=== PATIENT | female | born 1980 | race Caucasian/White ===

== ENCOUNTER 2020-04-17 11:25 | Emergency (ER) | payer OTHER, SELFPAY ==
--- NOTE | ~2020-04-17 | XR_ITS ---
XR knee LT min 4V 04/17/2020 11:48 INDICATION: Left lateral knee pain PROCEDURE: 4 views left knee COMPARISON: No prior studies for comparison. FINDINGS: Fracture, dislocation or subluxation is not identified. The soft tissues appear within norm al limits. No foreign bodies are identified. IMPRESSION: 1: NO ACUTE BONE OR JOINT ABNORMALITY IDENTIFIED. Reviewed, dictated and finalized at location A.
[2020-04-17 11:37] VITALS: BP 109/64; PULSE 90; RESP 16; TEMP 36.6; O2SAT 99
--- NOTE | 2020-04-17 11:59 | ED.LOWEXIN ---
HPI - Extremity Injury (Lower) General Chief Complaint: Extremity Injury, Lower Stated Complaint: fell left knee pain Time Seen by Provider: 04/17/20 11:59 Source: patient Mode of arrival: ambulatory Limitations: no limitations History of Present Illness HPI Narrative: Sonia Dickson is a 40 yo female who fell off a ladder last night while painting. Fell off third step with ladder, L posterior leg hurts, bruise to lateral thigh. Rates pain 2/10; raises to 8/10 with walking Related Data Home Medications Medication Instructions Recorded Confirmed dextroamphetamine-amphetamine 30 mg PO DAILY 04/17/20 04/17/20 [Adderall XR] lisinopril 10 mg PO DAILY 04/17/20 04/17/20 Allergies Allergy/AdvReac Type Severity Reaction Status Date / Time Penicillins Allergy Unknown HIVES Verified 04/17/20 11:39 Review of Systems Review of Systems: Narrative: CONSTITUTIONAL: Denies fever, chills, sweats. EYES: Denies visual changes, redness, discharge. ENT: Denies rhinorrhea, congestion, sore throat, otalgia. CARDIOVASCULAR: Denies chest pain, palpitations, edema. RESPIRATORY: Denies dyspnea, wheezing, cough GASTROINTESTINAL: Denies abdominal pain, nausea, vomiting, diarrhea. GENITOURINARY: Denies dysuria, hematuria, abnormal discharge SKIN: Denies rash or itching. NEUROLOGIC: Denies numbness, or focal weakness. PSYCHIATRIC: Denies anxiety or depression. L posterior knee pain with bruise to lateral distal femur PMFSH Past Medical History Medical History ADD (attention deficit disorder) HTN (hypertension) Family History Family History Other Hypertension Social History Social History Smoking status: Current every day smoker Tobacco type: e-cigarettes/vaping Alcohol intake: current Gender identity (if verbalized by the patient): Female Exam Narrative: Exam Narrative: GENERAL: This is a well-nourished, well-developed patient, in moderate distress. HEAD: normocephalic, atraumatic. EYES:Sclera clear/white. Vision is grossly intact. EARS: External ears normal, . Hearing grossly intact. NOSE: External nose normal without nasal discharge, nares without redness, no rhinorrhea. THROAT: Mucous membranes moist,nx NECK: Neck supple, CARDIOVASCULAR: Regular rate and rhythm without murmurs, gallops, or rubs. RESPIRATORY: Clear to auscultation. Breath sounds equal bilaterally. No wheezes, rales, or rhonchi. GASTROINTESTINAL: Abdomen soft, SKIN: warm, intact with no suspicious lesions or rash, good texture and turgor. NEURO: awake, alert, and oriented to person, place and time. There were no obvious focal neurologic abnormalities. Steady gait EXTREMITIES: Normal range of motion on R- L knee pain - unable to fully fex or extend, pain on posterior lateral part of knee, tender at IT band insertion notch BACK: Nontender without deformity Course Course Emergency Course: Here with left knee pain after fall from ladder last night X-ray negative for fracture -Clinically appears to have possible posterior ligament tear with IT band tightness. Ice the knee immobilizer. Started on pain medication, patient given directions to ice area and try to move it to level of pain tolerance; if not improving in 2 days to see orthopedics Vital Signs Vital signs: Vital Signs Temperature 97.8 F 04/17/20 11:37 Pulse Rate 90 04/17/20 11:37 Respiratory Rate 16 04/17/20 11:37 Blood Pressure 109/64 04/17/20 11:37 Pulse Oximetry 99 04/17/20 11:37 Temperature 97.8 F 04/17/20 11:37 Pulse Rate 90 04/17/20 11:37 Respiratory Rate 16 04/17/20 11:37 Blood Pressure 109/64 04/17/20 11:37 Pulse Oximetry 99 04/17/20 11:37 MDM - Extremity Injury (Lower) Differential Diagnosis Differential diagnosis: Likely acute internal derangement of knee and other Discharge
== END 2020-04-17 12:22 | disposition home or self-care (01) ==
PROVIDERS: Emergency Provider Nurse Practitioner; PCP Internal Medicine
DX: S89.92XA Unspecified injury of left lower leg, initial encounter (principal); W11.XXXA Fall on and from ladder, initial encounter; F98.8 Other specified behavioral and emotional disorders with onset usually occurring in childhood and adolescence; I10 Essential (primary) hypertension; F17.200 Nicotine dependence, unspecified, uncomplicated
CPT/HCPCS: 73564; 99213; G0463; L1830

== ENCOUNTER 2020-06-07 15:38 | Outpatient (CLI) | payer OTHER, SELFPAY ==
--- NOTE | ~2020-06-07 | MR_ITS ---
EXAMINATION: MR wrist LT wo con DATE: 06/07/2020 17:01 INDICATION: Acute onset left wrist pain post fall TECHNIQUE: Magnetic resonance imaging (MRI) of the left wrist was performed without intravenous contr ast. Sequences performed include axial PD-weighted FSE and PD-weighted FS FSE, coronal PD-weighted FS FSE and T1-weighted SE, and sagittal PD-weighted FS FSE and PD-weighted FSE. COMPARISON: None FINDINGS: Intrinsic ligaments: The lunotriquetral ligament is normal. Widening of the scapholunate interval with fluid-filled comple te tear involving the dorsal and central membranous components of the scapholunate ligament. Thickene d disorganized appearing volar component of the scapholunate ligament consistent with at least partia l tear. Triangular fibrocartilage complex (TFCC): Partial tear of the central fiber cartilaginous disc of the triangular fibrocartilage complex. The fo veal and styloid attachments as well as the dorsal and volar radioulnar ligaments remain normal. The ulnar collateral ligament, ulnotriquetral ligament and meniscal homologue are normal. There is a tear along the ulnar side of the extensor carpi ulnaris subsheath allowing partial subluxation of the ext ensor carpi ulnaris tendon across the ulnar rim of the ECU groove. Extensor wrist: Mild tendinopathy and longitudinal split tear of the extensor carpi ulnaris tendon centered at the le soniya of the ulnar styloid process. Extensor tendons of the wrist are otherwise normal. No tenosynoviti s. Flexor wrist: The flexor tendons of the wrist are normal. No abnormality in the carpal tunnel with normal median n erve. Guyon's canal: Guyon's canal including the ulnar nerve and artery are normal. Bones/other: In addition the widening of the scapholunate interval there is mild dorsal rotatory subluxation of th e lunate relative to the axis of the capitate. There is marrow edema in the lunate with suggestion of a small minimally displaced chip fracture fragment arising from the dorsal rim of the lunate. Otherw ise normal marrow signal with no other fractures, erosions or pathologic marrow replacing process. Li cherelle reactive small wrist and distal radioulnar joint effusions. Joint spaces appear otherwise normal . IMPRESSION: 1. Partial tear of the central fiber cartilaginous disc of the triangular fibrocartilage complex. 2. Complete tear of the dorsal and central numbness components of the scapholunate ligament and high- grade partial if not complete tear of the volar component with mild dorsal rotatory subluxation of th e lunate. 3. Marrow edema in the lunate likely secondary to a tiny minimally displaced chip fracture which appe ars to arise from the dorsal rim. 4. Tear of the ulnar side of the extensor carpi ulnaris subsheath with mild tendinopathy and longitud inal split tear of the extensor carpi ulnaris tendon which is partially subluxed across the ulnar rim of the ECU groove. 5. Small joint effusions at the wrist and distal radioulnar joints. Reviewed, dictated and finalized at location A. GER ECONOMIC IMPRESSION: 1. Partial tear of the central fiber cartilaginous disc of the triangular fibro cartilage complex. 2. Complete tear of the dorsal and central numbness components of the scapholun ate ligament and high-grade partial if not complete tear of the volar component with mild dorsal rotatory subluxation of the lunate. 3. Marrow edema in the lunate likely secondary to a tiny minimally displaced ch ip fracture which appears to arise from the dorsal rim. 4. Tear of the ulnar side of the extensor carpi ulnaris subsheath with mild ten dinopathy and longitudinal split tear of the extensor carpi ulnaris tendon whic h is partially subluxed across the ulnar rim of the ECU groove. 5. Smal
== END 2020-06-07 15:39 ==
PROVIDERS: PCP Internal Medicine; Visit Provider Internal Medicine
DX: S63.592A Other specified sprain of left wrist, initial encounter (principal); S66.812A Strain of other specified muscles, fascia and tendons at wrist and hand level, left hand, initial encounter
CPT/HCPCS: 73221